=== PATIENT | female | born 1955 | race African-American/Black ===

== ENCOUNTER → 2016-11-05 | Outpatient (CLI) | payer OTHER ==
[~2016-11-05] MED LIST: BLAC540C PO; BUSP10TA PO; EXCETAB2 PO; FLUO20CA4 PO; GABA300C5 PO; HYDR-3800 PO; HYDR50TA15 PO; LISI10TA PO; OMEP20TA PO; QUET1TAB8 PO; SERO300T PO
[2016-11-05 08:41] LABS: AUTOMATED NEUTROPHIL # 6.2 TH/MM3 (1.8-7.7); BASOPHIL # 0.1 TH/MM3 (0-0.2); BASOPHIL % 1.2 % (0.0-2.0); EOSINOPHIL # 0.3 TH/MM3 (0-0.4); EOSINOPHIL % 2.2 % (0.0-4.0); HEMATOCRIT 35.7 % (35.0-46.0); HEMO FLAGS DIFF FINAL; LYMPH % 31.5 % (9.0-44.0); LYMPHOCYTE # 3.8 TH/MM3 (1.0-4.8); MEAN CELL VOLUME 94.8 FL (80.0-100.0); MEAN CORPUSCULAR HEMOGLOBIN 30.3 PG (27.0-34.0); MEAN CORPUSCULAR HGB CONC 31.9 % (32.0-36.0); MONO % 13.3 % (0.0-8.0); NEUT % 51.8 % (16.0-70.0); PLATELET COUNT 312 TH/MM3 (150-450); RED BLOOD COUNT 3.77 MIL/MM3 (4.00-5.30); RED CELL DISTRIBUTION WIDTH 14.8 % (11.6-17.2); WHITE BLOOD COUNT 12.1 TH/MM3 (4.0-11.0)
[2016-11-05 09:07] LABS: ANION GAP 8 MEQ/L (5-15); AST (GOT) 23 U/L (15-37); BICARBONATE 23.8 MEQ/L (21.0-32.0); BLOOD UREA NITROGEN 7 MG/DL (7-18); CHLORIDE 109 MEQ/L (98-107); GLOMERULAR FILTRATION RATE 115 ML/MIN (>89); POTASSIUM 4.4 MEQ/L (3.5-5.1); SODIUM (NA) 141 MEQ/L (136-145)
[2016-11-05 09:08] LABS: GLUCOSE,FASTING 84 MG/DL (74-99)
[2016-11-05 09:21] LABS: ALKALINE PHOSPHATASE 83 U/L (45-117); ALT (GPT) 36 U/L (10-53); HDL CHOLESTEROL 97.9 MG/DL (40.0-60.0); LDL CHOLESTEROL 78 MG/DL (0-99); TOTAL BILIRUBIN ADULT 0.3 MG/DL (0.2-1.0)
== END ==
LOC: CLAB 11-04 10:04
PROVIDERS: ATTEND Family Medicine
DX: E78.5 Hyperlipidemia, unspecified (principal); D25.9 Leiomyoma of uterus, unspecified; M54.30 Sciatica, unspecified side; I10 Essential (primary) hypertension; Z72.0 Tobacco use
CPT/HCPCS: 36415; 80053; 80061; 84443; 85025

== ENCOUNTER 2017-10-05 10:20 | Emergency (ER) | payer OTHER ==
[~2017-10-05] VITALS: Ht 154.9 cm; Wt 45.0 kg
[~2017-10-05 10:20] MED LIST changes: +ASPI1TAB93 PO; -EXCETAB2 PO; +FLUO1TAB3 PO; -FLUO20CA4 PO; +HYDR-3801 PO; -HYDR50TA15 PO; -OMEP20TA PO; +OMEP20TA93 PO; +VENL75TA PO
[2017-10-05 10:29] VITALS: BP 156/92; PULSE 87; RESP 24; TEMP 97.5; O2SAT 100
--- NOTE | 2017-10-05 10:35 | PD ---
HPI Chief Complaint: GI Complaint Time Seen by Provider: 10:34 Travel History International Travel<30 days: No Contact w/Intl Traveler<30days: No Traveled to known affect area: No History of Present Illness HPI 62-year-old female came to the emergency room with history of vomiting and abdominal pain since last night. Patient says she vomited multiple times. Vomitus was mostly yellow in color. Upon asking she points to her epigastric region as the location of the pain going down to the umbilicus. No history of diarrhea. Patient has history of pancreatitis and she is a regular drinker. In fact last night she drank 5-6 glasses of cocktail that had gin. Patient says she feels weak and dehydrated. Vital signs were relatively stable. No blood in the vomitus. No specific aggravating or relieving factors identified. [facility] Past Medical History Narrative Medical List of her past medical, surgical, social and family history is reviewed from the nursing note Anxiety: Yes Depression: Yes Cancer: No Cardiovascular Problems: Yes (HTN) High Cholesterol: Yes Endocrine: No Gastrointestinal Disorders: Yes (pancreatitis ) Genitourinary: No Hepatitis: Yes (C) Hypertension: Yes Immune Disorder: No Musculoskeletal: Yes Neurologic: No Psychiatric: Yes Reproductive: No Respiratory: No ?: Not Menopausal: Yes Past Surgical History Other Surgery: Yes (dental work) Social History Alcohol Use: Yes (4 BEERS A DAY) Tobacco Use: Yes (1/2 A PACK) Substance Use: Yes (marijuana, cocaine) Allergies-Medications (Allergen,Severity, Reaction): Coded Allergies: No Known Allergies (Verified , 12/01/16) Comments No known drug allergies. Reported Meds & Prescriptions Reported Meds & Active Scripts Active Zofran Odt (Ondansetron Odt) 4 Mg Tab 4 Mg SL Q6HR PRN Omeprazole 20 Mg Tab 20 Mg PO DAILY Omeprazole 20 Mg Tab 20 Mg PO DAILY Lisinopril-Hctz 10-12.5 Mg Tab 1 Tab PO DAILY Reported Excedrin Extra Strength (Slqqpso-Cvbnqbupbzcof-Hddshdwc) 1 Tab Tab 2 Tab PO BID Hydralazine (Hydralazine HCl) 100 Mg Tab 50 Mg PO BID Take with meals Effexor (Venlafaxine HCl) 75 Mg Tab 75 Mg PO DAILY Black Cohosh (Black Cohosh Extract) 40 Mg Cap 40 Mg PO DAILY Gabapentin 300 Mg Cap 300 Mg PO BID Quetiapine (Quetiapine Fumarate) 100 Mg Tab 100 Mg PO DAILY Seroquel (Quetiapine Fumarate) 300 Mg Tab 300 Mg PO HS Two tabs at night Narrative Medication List of her home medications reviewed from the nursing note Review of Systems Except as stated in HPI: all other systems reviewed are Neg Gastrointestinal: Positive: Nausea, Vomiting, Abdominal Pain Physical Exam Narrative GENERAL: Awake, alert, moderate distress SKIN: Focused skin assessment warm/dry. HEAD: Atraumatic. Normocephalic. EYES: Pupils equal and round. No scleral icterus. No injection or drainage. ENT: No nasal bleeding or discharge. Coated tongue and dry mucous membrane NECK: Trachea midline. No JVD. CARDIOVASCULAR: Regular rate and rhythm. No murmur appreciated. RESPIRATORY: No accessory muscle use. Clear to auscultation. Breath sounds equal bilaterally. GASTROINTESTINAL: Abdomen soft, non-tender, nondistended. Hepatic and splenic margins not palpable. MUSCULOSKELETAL: No obvious deformities. No clubbing. No cyanosis. No edema. NEUROLOGICAL: Awake and alert. No obvious cranial nerve deficits. Motor grossly within normal limits. Normal speech. PSYCHIATRIC: Appropriate mood and affect; insight and judgment normal. Data Data Last Documented VS Vital Signs Date Time Temp Pulse Resp B/P (MAP) Pulse Ox O2 Delivery O2 Flow Rate FiO2 10/05/17 10:49 90 17 184/117 (139) 95 10/05/17 10:29 97.5 Orders Orders Complete Blood Count With Diff (10/05/17 10:39) Comprehensive Metabolic Panel (10/05/17 10:39) Lipase (10/05/17 10:39) Urinalysis - C+S If Indicated (10/05/17 10:39) Iv Access Insert/Monitor (10/05/17 10:39) Ecg Monitoring (10/05/17 10:39) Oximetry (10/05/17 10:39) Morphine Inj (Morphine Inj) (10/05/17 10:45) Sodium Chlor 0.9% 1000 Ml Inj (Ns 1000 M (10/05/17 10:39) Sodium Chloride 0.9% Flush (Ns Flush) (10/05/17 10:45) Metoclopramide Inj (Reglan Inj) (10/05/17 10:45) Labs Laboratory Tests Test 10/05/17 10:55 White Blood Count 8.3 TH/MM3 Red Blood Count 4.29 MIL/MM3 Hemoglobin 13.9 GM/DL Hematocrit 40.4 % Mean Corpuscular Volume 94.3 FL Mean Corpuscular Hemoglobin 32.3 PG Mean Corpuscular Hemoglobin Concent 34.3 % Red Cell Distribution Width 15.0 % Platelet Count 396 TH/MM3 Mean Platelet Volume 7.8 FL Neutrophils (%) (Auto) 71.9 % Lymphocytes (%) (Auto) 21.2 % Monocytes (%) (Auto) 5.9 % Eosinophils (%) (Auto) 0.2 % Basophils (%) (Auto) 0.8 % Neutrophils # (Auto) 6.0 TH/MM3 Lymphocytes # (Auto) 1.8 TH/MM3 Monocytes # (Auto) 0.5 TH/MM3 Eosinophils # (Auto) 0.0 TH/MM3 Basophils # (Auto) 0.1 TH/MM3 CBC Comment DIFF FINAL Differential Comment Blood Urea Nitrogen 8 MG/DL Creatinine 0.89 MG/DL Random Glucose 130 MG/DL Total Protein 8.9 GM/DL Albumin 4.3 GM/DL Calcium Level 9.4 MG/DL Alkaline Phosphatase 101 U/L Aspartate Amino Transf (AST/SGOT) 39 U/L Alanine Aminotransferase (ALT/SGPT) 46 U/L Total Bilirubin 0.4 MG/DL Sodium Level 138 MEQ/L Potassium Level 3.9 MEQ/L Chloride Level 101 MEQ/L Carbon Dioxide Level 26.3 MEQ/L Anion Gap 11 MEQ/L Estimat Glomerular Filtration Rate 78 ML/MIN Lipase 70 U/L [facility] Medical Decision Making Medical Screen Exam Complete: Yes Emergency Medical Condition: Yes Medical Record Reviewed: Yes Differential Diagnosis Acute pancreatitis, alcoholic gastritis, dehydration, electrolyte abnormal Narrative Course 12:15 PM CBC and chemistries back and within normal limits. Lipase is not elevated. Patient was given IV fluid bolus and IV Reglan. She was also given IV Protonix. She has not vomited anymore since she came here. Awaiting for the UA. If UA is negative patient will be discharged home. Procedures EKG Prior to Arrival: No Diagnosis Primary Impression: Alcoholic gastritis Qualified Codes: K29.20 - Alcoholic gastritis without bleeding Additional Impression: Abdominal pain Qualified Codes: R10.13 - Epigastric pain Referrals: Primary Care Physician Additional Instructions: He should not drink alcohol since it has recurrently has done this to you. Take the medications as per the prescription direction. Med/Other Pt SpecificInfo: Prescription(s) given Scripts Ondansetron Odt (Zofran Odt) 4 Mg Tab 4 MG SL Q6HR Y for Nausea/Vomiting, #15 TAB 0 Refills Prov: Edita Lin MD 10/05/17 Omeprazole (Omeprazole) 20 Mg Tab 20 MG PO DAILY, #30 TAB 0 Refills Prov: Edita Lin MD 10/05/17 Disposition: 01 DISCHARGE HOME Condition: Stable Edita Lin MD October 05, 2017 10:35
[2017-10-05] MEDS ORDERED: SODIUM CHLOR 0.9% 1000 ML INJ 1,000 ML IV SCH (10:39)
[2017-10-05] MEDS ORDERED: METOCLOPRAMIDE HCL 10 MG/2 ML VIAL IV PUSH ONE (10:45)
[2017-10-05] MEDS ORDERED: SODIUM CHLORIDE 0.9% FLUSH 10 ML FLUSH IV FLUSH PRN (10:45)
[2017-10-05] MEDS ORDERED: MORPHINE SULFATE 4 MG/ML INJ IV PUSH ONE (10:45)
[2017-10-05 10:49] VITALS: BP 184/117; PULSE 90; RESP 17; O2SAT 95
[2017-10-05 11:16] LABS: BASOPHIL # 0.1 TH/MM3 (0-0.2); BASOPHIL % 0.8 % (0.0-2.0); EOSINOPHIL % 0.2 % (0.0-4.0); HEMATOCRIT 40.4 % (35.0-46.0); HEMOGLOBIN 13.9 GM/DL (11.6-15.3); LYMPH % 21.2 % (9.0-44.0); LYMPHOCYTE # 1.8 TH/MM3 (1.0-4.8); MEAN CELL VOLUME 94.3 FL (80.0-100.0); MEAN CORPUSCULAR HEMOGLOBIN 32.3 PG (27.0-34.0); MEAN CORPUSCULAR HGB CONC 34.3 % (32.0-36.0); MEAN PLATELET VOLUME 7.8 FL (7.0-11.0); MONO % 5.9 % (0.0-8.0); MONOCYTE # 0.5 TH/MM3 (0-0.9); NEUT % 71.9 % (16.0-70.0); PLATELET COUNT 396 TH/MM3 (150-450); RED BLOOD COUNT 4.29 MIL/MM3 (4.00-5.30); WHITE BLOOD COUNT 8.3 TH/MM3 (4.0-11.0)
[2017-10-05 11:34] LABS: ALBUMIN 4.3 GM/DL (3.4-5.0); ALKALINE PHOSPHATASE 101 U/L (45-117); ALT (GPT) 46 U/L (10-53); AST (GOT) 39 U/L (15-37); BICARBONATE 26.3 MEQ/L (21.0-32.0); BLOOD UREA NITROGEN 8 MG/DL (7-18); CALCIUM 9.4 MG/DL (8.5-10.1); CHLORIDE 101 MEQ/L (98-107); CREATININE 0.89 MG/DL (0.50-1.00); GLOMERULAR FILTRATION RATE 78 ML/MIN (>89); GLUCOSE,RANDOM 130 MG/DL (74-106); SODIUM (NA) 138 MEQ/L (136-145); TOTAL BILIRUBIN ADULT 0.4 MG/DL (0.2-1.0); TOTAL PROTEIN 8.9 GM/DL (6.4-8.2)
[2017-10-05] MEDS ORDERED: ZOFR4TAB3 SL (12:18)
[2017-10-05] MEDS ORDERED: OMEP20TA93 PO (12:18)
[2017-10-05 12:54] LABS: BACTERIA, URINE RARE /hpf; BILIRUBIN, URINE NEG (NEG); BLOOD, URINE NEG (NEG); GLUCOSE,URINE NEG (NEG); KETONE, URINE NEG (NEG); NITRITE,URINE NEG (NEG); SQUAMOUS EPITHELIAL CELL URINE 9 /hpf (0-5); URINE COLOR LIGHT-YELLOW (YELLW/STRAW); URINE LEUKOCYTE ESTERASE MOD (NEG)
== END 2017-10-05 13:15 | disposition home or self-care (01) ==
LOC: NEPD 10:20
DX: K29.20 Alcoholic gastritis without bleeding (principal); F17.200 Nicotine dependence, unspecified, uncomplicated; F12.90 Cannabis use, unspecified, uncomplicated; F14.90 Cocaine use, unspecified, uncomplicated; F10.10 Alcohol abuse, uncomplicated
CPT/HCPCS: 80053; 81001; 83690; 85025; 96361; 96374; 96375; 99284; J2270; J2765; J7030